=== PATIENT | female | born 1930 | race Caucasian/White ===

== ENCOUNTER → 2016-09-17 | Outpatient (CLI) | payer MEDICARE, OTHER ==
--- NOTE | 2016-09-17 15:41 | MAM ---
EXAM DESCRIPTION: MAMMO BREAST SCREENING BILATERAL CAD, images were reviewed with CAD technology, R2 computer-aided detection. CLINICAL HISTORY: [facility]. COMPARISON: 2011. FINDINGS: Routine views are obtained. Scattered glandular pattern. No dominant mass, architectural distortion or clustered microcalcification.. IMPRESSION: Benign exam. BIRAD CATEGORY: 2 BENIGN RECOMMENDATIONS: FOLLOW-UP: Routine screening mammogram in one year. According to the [employer], yearly mammograms are recommended starting at age 40 and continuing as long as a woman is in good health. Any breast change noted on a breast self-exam should be reported promptly to the patient's healthcare provider. Breast MRI is recommended for women with an approximately 20-25% or greater lifetime risk of breast cancer, including women with a strong family history of breast or ovarian cancer and women who have been treated for Hodgkin's disease. Electronically signed by: Nurys Hernandez 09/17/2016 15:39
== END ==
LOC: MAMMO 10:01
PROVIDERS: ATTEND Obstetrics & Gynecology
DX: Z12.31 Encounter for screening mammogram for malignant neoplasm of breast (principal)
CPT/HCPCS: 77052; G0202

== ENCOUNTER → 2017-06-18 | Outpatient (CLI) | payer MEDICARE, OTHER | END | disposition home or self-care (01) | LOC: GMAH 12:02 | PROVIDERS: ATTEND Family Medicine | DX: I10 Essential (primary) hypertension (principal) ==

== ENCOUNTER → 2017-09-24 | Outpatient (CLI) | payer MEDICARE, OTHER ==
--- NOTE | 2017-09-30 08:10 | MAM ---
EXAM DESCRIPTION: 3D Screening BILATERAL : Digital Mammography. CLINICAL HISTORY: 87 years Female SCREENING . No complaints. No family history of breast cancer. Postmenopausal. No HRT. COMPARISON: 2-D digital screening bilateral studies on 09/17/2016 and 09/12/2015. Report from prior examination also reviewed. TECHNIQUE: Bilateral CC and MLO projection full-field images, 3-D tomosynthesis digital mammographic technique. Also bilateral synthesized CC/ MLO full-field images. CAD not utilized. FINDINGS: The breast parenchymal density pattern is: Scattered areas of fibroglandular density. No skin thickening or nipple retraction bilateral axillary lymph nodes. Bilateral vascular calcifications. Bilateral solitary microcalcifications. No focal, stellate mass or density, focal asymmetry , and no suspicious microcalcifications bilaterally. Stable mammograms compared to prior study, taking into account differences in mammographic technique IMPRESSION: BI-RADS CATEGORY: 2 - BENIGN FINDINGS. FOLLOW UP: Routine digital bilateral screening, one year interval from September 2017. Written communication explaining the IMPRESSION and follow-up, will be mailed to the patient and referring health care provider. According to the [employer], yearly mammograms are recommended starting at age 40 and continuing as long as a woman is in good health. Any breast change noted on a breast self-exam should be reported promptly to the patient's healthcare provider. Breast MRI is recommended for women with an approximately 20-25% or greater lifetime risk of breast cancer, including women with a strong family history of breast or ovarian cancer and women who have been treated for Hodgkin's disease. A negative mammographic report should not delay tissue diagnosis in patients with significant clinical history or physical findings. Extremely dense breast tissue limits the sensitivity of digital mammography. Electronically signed by: Derrell Strong MD 09/30/2017 8:09 AM [facility]
== END ==
LOC: MAMMO 09:30
PROVIDERS: ATTEND Family Medicine
DX: Z12.31 Encounter for screening mammogram for malignant neoplasm of breast (principal)

== ENCOUNTER → 2018-01-22 | Outpatient (CLI) | payer OTHER ==
--- NOTE | 2018-01-28 11:41 | CT ---
EXAM DESCRIPTION: Head CLINICAL HISTORY: MIGRAINE W/AURA COMPARISON: None Available TECHNIQUE: Contiguous axial CT images of the head were obtained. Coronal and sagittal reconstructions were created from the axial data. This exam was performed according to our departmental dose-optimization program, which includes automated exposure control, adjustment of the mA and/or kV according to patient size and/or use of iterative reconstruction technique. FINDINGS: Poorly defined foci of decreased attenuation do not exert significant mass effect on surrounding structures and are likely sequela of prior insult, most likely on the basis of small vessel disease. There is no definite evidence of acute mass, mass effect, midline shift or hemorrhage. The ventricles and extra-axial CSF spaces are unremarkable. The brain parenchyma appears otherwise normal for the patient's age. No acute abnormalities of the bones is seen. IMPRESSION: No acute intracranial abnormality. Electronically signed by: Derrell Ovalle 01/22/2018 5:52 PM CDT
== END ==
LOC: CT 11:45
PROVIDERS: ATTEND Family Medicine
DX: G43.109 Migraine with aura, not intractable, without status migrainosus (principal)

== ENCOUNTER 2018-02-22 14:28 | Emergency (ER) | payer MEDICARE, OTHER ==
[2018-02-22 14:41] VITALS: TEMP 98.3
--- NOTE | 2018-02-22 15:12 | RAD ---
EXAM DESCRIPTION: Hip,Left 2 Views CLINICAL HISTORY: hip pain COMPARISON: None. TECHNIQUE: 2 views left FINDINGS: I see no bone joint or soft tissue abnormality. IMPRESSION: Normal left hip. Electronically signed by: Arturo Vitale MD 02/22/2018 3:10 PM CDT
--- NOTE | 2018-02-22 16:48 | CT ---
EXAM DESCRIPTION: Lower Extremity CLINICAL HISTORY: 87 years Female left femur pain COMPARISON: None. TECHNIQUE: Contiguous axial CT images obtained through the without IV contrast. Reformatted images obtained. This exam was performed according to our department optimization program which includes automated exposure control, adjustment of the mA and/or kv according to patient size and/or use of iterative reconstruction technique. All CT scanners at this facility use dose modulation, iterative reconstruction, and/or weight based dosing when appropriate to reduce radiation dose to as low as reasonably achievable (ALARA). FINDINGS: No fracture or dislocation is seen. No intrinsic abnormality of the bone. No definite soft tissue abnormality. IMPRESSION: No significant abnormality identified. Electronically signed by: Derrell Ovalle 02/22/2018 4:47 PM CDT
--- NOTE | 2018-02-22 17:04 | ED.PDOC ---
History of Present Illness - General Chief Complaint: Lower Extremity Injury Stated Complaint: left thigh injury Time Seen by Provider: 02/22/18 14:38 Source: patient, Vital Signs reviewed Exam Limitations: no limitations - History of Present Illness Initial Comments: fell onto her left side now with left medial thigh [place] slightly distal to the inguinal fold Occurred: other - today Pain - Lower Extremity: mild: Left Thigh/Hip Method of Injury: fell Improving Factors: rest Worsening Factors: movement Allergies/Adverse Reactions: Allergies Penicillins Allergy (Verified 02/22/18 14:35) Hives Review of Systems - Review of Systems Constitutional: States: no symptoms reported Respiratory: States: no symptoms reported Cardiology: States: no symptoms reported Gastrointestinal/Abdominal: States: no symptoms reported Genitourinary: States: no symptoms reported Musculoskeletal: States: see HPI. Denies: back pain Skin: States: no symptoms reported Neurological: Denies: headache, paresthesia, weakness Past Medical History (General) - Patient Medical History Hx Stroke: No Hx Congestive Heart Failure: No Hx Hypertension: Yes Hx Diabetes: No Hx Gastroesophageal Reflux: Yes Hx Cancer: Yes - Melanoma - Vaccination History Hx Influenza Vaccination: Yes - 2016 Hx Pneumococcal Vaccination: Yes - 2014 - Social History Hx Tobacco Use: No Family Medical History - Family History Mother Family History: No Known Living Status: Cause of : Old age Physical Exam - Physical Exam General Appearance: Alert, Comfortable, No apparent distress Neck: full range of motion, supple, normal inspection Cardiovascular/Respiratory: no respiratory distress Gastrointestinal/Abdominal: non-tender Back: normal inspection Thigh/Hip: normal inspection, no evidence of injury, pain, soft tissue tenderness Leg: normal inspection Knee: normal inspection Neuro/Tendon: normal motor functions, responds to pain Mental Status: alert, oriented x 3 Skin: normal color Progress - Progress Progress: 02/22/18 17:02 improved. Able to beaar weight. Walks with a limp. Declines pain meds or wheelchair. Limited weight bearing this weekend. F/U with PCP on Saturday. - EKG/XRAY/CT XRAY: hip - normal CT Ordered: Yes CT Interpretation Call Back: No - normal Departure - Departure Clinical Impression: Contusion of hip and thigh Qualifiers: Encounter type: initial encounter Laterality: left Qualified Code(s): S70.02XA - Contusion of left hip, initial encounter Disposition: Discharge to Home or Self Care Condition: Fair Departure Forms: ED Discharge - Pt. Copy, Patient Portal Self Enrollment Instructions: Hip Pain, Hip Pain (DC) Referrals: Abdias Duarte MD [Primary Care Provider] - 1-2 Days
[2018-02-22 17:18] VITALS: BP 177/73; O2SAT 96
== END 2018-02-22 17:20 | disposition home or self-care (01) ==
LOC: ER 14:28
DX: S70.12XA Contusion of left thigh, initial encounter (principal); I10 Essential (primary) hypertension; K21.9 Gastro-esophageal reflux disease without esophagitis; Z85.820 Personal history of malignant melanoma of skin; Z88.0 Allergy status to penicillin; W01.198A Fall on same level from slipping, tripping and stumbling with subsequent striking against other object, initial encounter; Y92.000 Kitchen of unspecified non-institutional (private) residence as the place of occurrence of the external cause

== ENCOUNTER → 2018-03-06 | Outpatient (CLI) | payer OTHER ==
--- NOTE | 2018-03-06 16:38 | MRI ---
Study: MRI of the Left Hip. Indication: PAIN IN LEFT HIP Technique: Multiplanar, multi sequence MRI of the left hip was obtained without intravenous contrast. Comparison: Radiographs and CT February 22, 2018. Findings: Acute impacted subcapital left femoral neck fracture noted with surrounding marrow edema and pericapsular edema. No osteonecrosis. At least mild left hip osteoarthritis. Fairly prominent marrow edema and likely subchondral cystic change noted of the superior medial aspects of the right hip joint affecting both the femoral head and acetabulum. Pronounced lower lumbar disc disease. 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 Moderate pubic symphysis osteoarthritis. No high-grade pelvic tendon tear. Bladder distended. Impression: Acute impacted left subcapital femoral neck fracture. Orthopedic consultation is advised. Findings on this exam were called to Dr. MARIE VEGA at 03/06/2018 4:36 PM CDT. Electronically signed by: Rasta Lin MD 03/06/2018 4:36 PM CDT
== END ==
LOC: MRI 11:23
PROVIDERS: ATTEND Family Medicine
DX: S72.002A Fracture of unspecified part of neck of left femur, initial encounter for closed fracture (principal)

== ENCOUNTER 2018-03-07 06:54 | Inpatient (IN) | payer OTHER ==
[2018-03-07] MEDS ORDERED: TRANEXAMIC ACID 1,000 MG/10 ML VIAL ONE ×2 (08:47→08:48)
[2018-03-07] MEDS ORDERED: SODIUM CHLORIDE 0.9% 100ML 100 ML IVPB ONE (08:47)
[2018-03-07] MEDS ORDERED: SODIUM CHLORIDE 0.9% 1000ML 1,000 ML ONE (08:47)
[2018-03-07] MEDS ORDERED: SODIUM CHL 0.9% 100ML MINI-BAG 100 ML IVPB ONE (08:48)
[2018-03-07] MEDS ORDERED: SODIUM CHLORIDE 0.9% 250ML 250 ML ONE ×2 (08:49→21:04)
[2018-03-07] MEDS ORDERED: ceFAZolin SODIUM 1 GM VIAL ONE ×3 (08:49→08:56)
[2018-03-07] MEDS ORDERED: VANCOMYCIN HCL INJ 1,000 MG VIAL IVPB ONE ×2 (08:49→21:05)
[2018-03-07] MEDS ORDERED: MORPHINE SULFATE INJ 10 MG/ML VIAL ONE (08:59)
[2018-03-07] MEDS ORDERED: DEXAMETHASONE INJ 10 MG/ML VIAL ONE (09:00)
[2018-03-07] MEDS ORDERED: METOCLOPRAMIDE HCL INJ 10 MG/2 ML VIAL ONE (09:00)
[2018-03-07] MEDS ORDERED: raNITIdine HCL INJ 25 MG/ML VIAL ONE (09:00)
[2018-03-07] MEDS ORDERED: PHENYLEPHRINE INJ 1ML 10 MG/ML VIAL ONE (09:00)
[2018-03-07] MEDS ORDERED: ePHEDrine SULF 50 MG/ML ONE (09:00)
[2018-03-07] MEDS ORDERED: SODIUM CHLORIDE 0.9% 50 ML VIAL ONE (09:00)
[2018-03-07] MEDS ORDERED: LIDOCAINE 1% 2 ML VIAL INJ ONE (09:00)
[2018-03-07] MEDS ORDERED: PROPOFOL 200 MG/20 ML VIAL IV ONE (09:00)
[2018-03-07] MEDS ORDERED: MORPHINE SULF *EPIDURAL* 1 MG/ML VIAL ONE (09:42)
[2018-03-07] MEDS ORDERED: fentaNYL CITRATE INJ 50 MCG/ML AMP ONE (09:42)
[2018-03-07] MEDS ORDERED: MIDAZOLAM INJ 2 MG/2 ML VIAL ONE (09:42)
[2018-03-07] MEDS ORDERED: ROCURONIUM BROMIDE 10 MG/ML VIAL ONE (09:43)
[2018-03-07] MEDS ORDERED: ACETAMINOPHEN IV 1000MG 100 ML ONE (09:53)
--- NOTE | 2018-03-07 10:09 | RAD ---
EXAM DESCRIPTION: Chest,2 Views CLINICAL HISTORY: pre op COMPARISON: None TECHNIQUE: PA/lateral FINDINGS: There is no acute appearing cardiac or pulmonary abnormality. Heart size is normal with normal pulmonary vascularity. No pleural effusion or pneumothorax. Lungs are clear with no consolidating infiltrate. Lateral view shows intact sternum and T-spine. IMPRESSION: No acute process is identified in the chest. Electronically signed by: Quinten Garnett MD 03/07/2018 10:08 AM CDT
[2018-03-07] MEDS: VANCOMYCIN HCL INJ 1,000 MG VIAL IVPB ONE ×2 (11:04→11:58)
[2018-03-07] MEDS: ceFAZolin SODIUM 1 GM VIAL ONE ×2 (11:04→11:58)
[2018-03-07] MEDS: BUPIVACAINE 0.25% W/EPI 50 ML VIAL INJ ONE ×2 (11:05→12:33)
[2018-03-07] MEDS ORDERED: ELECTROLYTE-A 1,000 ML IVS ONE ×2 (11:27→12:44)
[2018-03-07] MEDS ORDERED: SUGAMMADEX SODIUM 200 MG/2 ML VIAL IV ONE (12:29)
[2018-03-07] MEDS ORDERED: MORPHINE PCA 1 MG/ML 100 ML BAG IVPB ONE (13:23)
--- NOTE | 2018-03-07 14:35 | HP ---
CHIEF COMPLAINT: Left hip pain. HISTORY OF PRESENT ILLNESS: Ms. Rick is an 87-year-old female with a history of a fall about 3 weeks ago. She had the acute onset of pain at that time. She was taken to the Emergency Room initially and there was no abnormality identified. She subsequently underwent evaluation with a CT scan which was also negative. She presented to Dr. Duarte's office and Dr. Duarte performed an MRI which did show a subcapital femoral neck fracture. At that point, it had become displaced. Because of those findings and the displaced nature of it, she and I discussed the risks, benefits and alternatives to operative therapy. After doing so, she gave informed consent for hemiarthroplasty. PAST MEDICAL HISTORY: 1. Hiatal hernia with gastroesophageal reflux disease. 2. Hypertension. 3. Hyperlipidemia. PAST SURGICAL HISTORY: 1. Cholecystectomy. 2. Bladder suspension. 3. Hysterectomy. 4. Laminectomy. 5. Cataract removal. MEDICATIONS: 1. Valsartan. 2. Trospium. 3. Tramadol. FAMILY HISTORY: None pertinent to today's complaint. SOCIAL HISTORY: The patient does not drink, smoke or use any illicit drugs. REVIEW OF SYSTEMS: Negative except as indicated in the History of Present Illness. PHYSICAL EXAMINATION: VITAL SIGNS: Blood pressure 110/72. Respirations 18. O2 saturation 99%. Temperature 97.2. Pulse 85. MENTAL STATUS: The patient is awake, alert, and is able to give a good history and participate in the physical. The patient is oriented to person, place and time. SKIN: Normal tone and turgor. HEENT: Normocephalic, atraumatic. Pupils equal, round and reactive. Mucosal membranes are moist. NECK: Normal range of motion. No thyromegaly, no lymphadenopathy. CHEST: Normal respiratory excursion. CARDIAC: Regular rate and rhythm. No murmurs, rubs or gallops. MUSCULOSKELETAL: The bilateral upper extremities show full active range of motion without pain. She has intact sensation throughout and they are warm and well perfused. There is no deformity and no crepitus with range of motion. The right lower extremity shows no significant pain with range of motion of the hip. There is no deformity. Plantar flexion and dorsiflexion of the distal extremity shows 5/5 strength. The left lower extremity is very tender to any attempted range of motion of the hip. She has no deformity. Sensation is intact. It is warm and well perfused. ASSESSMENT: 1. Subcapital femoral neck fracture. PLAN: The plan at this point is for hemiarthroplasty. I do believe that is the quickest way to get her up and mobilized. We have discussed the risks, benefits , and alternatives to that and the patient has given informed consent. [facility][id number] [facility]
[2018-03-07] MEDS ORDERED: PROMETHAZINE HCL INJ 25 MG in SODIUM CHLORIDE 0.9% 50ML 50 ML IVPB PRN (15:34)
[2018-03-07] MEDS ORDERED: MORPHINE SULFATE INJ 10 MG/ML VIAL IM PRN (15:34)
[2018-03-07] MEDS ORDERED: NALOXONE HCL INJ 0.4 MG/ML VIAL IV PRN (15:34)
[2018-03-07] MEDS ORDERED: ACETAMINOPHEN 500 MG TAB PO PRN (15:34)
[2018-03-07] MEDS ORDERED: DEX 5% W/NACL 0.45% 1000ML 1,000 ML IVS PRN (15:34)
[2018-03-07] MEDS ORDERED: SODIUM CHLORIDE 0.9% (FLUSH) 10 ML SYG IV PRN (15:34)
[2018-03-07] MEDS ORDERED: ONDANSETRON INJ 4 MG/2 ML VIAL IV PRN (15:34)
[2018-03-07] MEDS ORDERED: PROMETHAZINE HCL INJ 12.5 MG in SODIUM CHLORIDE 0.9% 50ML 50 ML IVPB PRN (15:34)
[2018-03-07] MEDS ORDERED: traMADol HCL 50 MG TAB PO PRN (15:34)
[2018-03-07] MEDS ORDERED: MORPHINE SULFATE INJ 10 MG/ML VIAL IV PRN (15:34)
[2018-03-07] MEDS ORDERED: MORPHINE PCA 1 MG/ML 100 ML BAG IVPB SCH (16:00)
[2018-03-07] MEDS: IV SET AND CAP CHANGE INJ INJ SCH (16:08)
[2018-03-07] MEDS ORDERED: ceFAZolin SODIUM 2 GRAMS PREMI 50 ML IVPB ONE (18:10)
[2018-03-07] MEDS: ceFAZolin SODIUM 2 GRAMS PREMI 2 GM in PREMIX BAG 1 BAG IVPB SCH (18:15)
[2018-03-07] MEDS: CELECOXIB 100 MG CAP PO SCH (18:15)
--- NOTE | 2018-03-07 19:43 | RAD ---
EXAM DESCRIPTION: Pelvis CLINICAL HISTORY: postop COMPARISON: None Available. TECHNIQUE: AP left hip neutral and abduction FINDINGS: Left total hip arthroplasty. Customary position and near-anatomic alignment. The bone density measurement abutting the components is unremarkable. Typical postsurgical soft tissue changes. No abnormal radiodense objects in the soft tissues or joint spaces. IMPRESSION: Status post left total hip arthroplasty. Customary position and near-anatomic alignment. No bony or hardware complications. Electronically signed by: Derrell Strong MD 03/07/2018 7:42 PM CDT
--- NOTE | 2018-03-07 19:45 | RAD ---
EXAM DESCRIPTION: Hip,Left 2 Views CLINICAL HISTORY: 87 years Female, postop COMPARISON: Pelvis and hip radiographs on the same visit. Impression: Left total hip arthroplasty. Components in customary position with near-anatomic alignment. Appearance of the bone and cement abutting the components is unremarkable. Typical postsurgical soft tissue changes. No abnormal radiodense objects in the soft tissues or hip joint space. Electronically signed by: Derrell Strong MD 03/07/2018 7:43 PM CDT
[2018-03-07] MEDS: DOCUSATE CALCIUM 240 MG CAP PO SCH (21:43)
[2018-03-07] MEDS: VANCOMYCIN HCL INJ 1,000 MG in SODIUM CHLORIDE 0.9% 250ML 250 ML IVPB SCH (21:43)
--- NOTE | 2018-03-07 22:04 | PCM.CORE ---
Physician DVT/VTE - Nurse DVT Assessment & Total Each Risk Factor Represents 5 Points: Hip,Pelvis,leg Fx <1month Each Risk Factor Represents 3 Points: Age over 75 years Each Risk Factor Represents 1 Point: Medical PT at Bed Rest Each Risk Factor is 1 Point: Obesity (BMI >25) DVT Assessment Score: 10 - 5 or more Very High Risk Treatments: Early Ambulation *, Sequential Compression Device Pharmacological: Enoxaparin 30mg SQ BID
[2018-03-08] MEDS ORDERED: ceFAZolin SODIUM 2 GRAMS PREMI 50 ML IVPB ONE ×2 (02:38→12:33)
[2018-03-08] MEDS: ceFAZolin SODIUM 2 GRAMS PREMI 2 GM in PREMIX BAG 1 BAG IVPB SCH ×2 (02:41→11:00)
[2018-03-08] MEDS: ENOXAPARIN SODIUM 30 MG/0.3 ML SYG SUBCU SCH ×2 (02:42→14:12)
[2018-03-08] MEDS: CELECOXIB 100 MG CAP PO SCH ×2 (07:00→18:47)
--- NOTE | 2018-03-08 09:14 | CONS ---
SUPERVISING PHYSICIAN: Richmond Valencia MD REASON FOR CONSULTATION: Postoperative left hemiarthroplasty for acute left hip fracture. HISTORY OF PRESENT ILLNESS: Ms. Rick is an 87 year-old female patient. Her primary care physician is Dr. Duarte. The patient notes that she had gone to the Emergency Room on 02/22/18 with complaint of left hip pain and leg pain. 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 Initially, workup in the Emergency Department included x-rays of her hip that initially showed a normal left. This was then followed up with a lower extremity CT that showed no significant abnormalities identified. The patient was discharged home to have close clinical followup with Dr. Duarte. She was seen in followup on 02/25 and at that time treated with pain management. Three does post followup, the patient was continuing to have a significant amount of pain in her hip despite palliative measure treatments with heat and Tramadol, the patient was getting no relief. Dr. Duarte reviewed the CT and x-rays that were performed in the Emergency Department with radiologist, Dr. Strong, who recommended an MRI of the hip. MRI of the hip was completed on 03/06/18 and it was noted that she had acute impacted subcapital femoral neck fracture. Dr. Duarte consulted with Dr. Ansari who recommended the patient be admitted on the power plant electrician of 02/17 for a left hemiarthroplasty to repair the broken hip. The patient was admitted on 03/07 and had procedure completed which included a hemiarthroplasty of the left hip. The patient had no complications intraoperatively and is now seen in the postoperative state. She is in stable condition and appears to be comfortable and in no pain. We will follow the patient as she progresses through her postoperative phase. PAST MEDICAL HISTORY: 1. History of gastritis and hiatal hernia with gastroesophageal reflux disease. 2. History of hypertension. 3. History of hyperlipidemia. 4. Seasonal allergies. PAST SURGICAL HISTORY: 1. Cholecystectomy. 2. Bladder suspension. 3. Hysterectomy. 4. Back surgery, laminectomy. 5. Cataract with corneal implant. CURRENT MEDICATIONS: 1. Valsartan 160 mg daily. 2. Trospium chloride extended release 60 mg daily. 3. Tramadol 50 mg daily. 4. Prednisone drops, Omnipred 1% both eyes daily. FAMILY HISTORY: Significant for colon cancer in her father. Mother from pancreatic cancer. No mention of any significant heart disease or diabetes. SOCIAL HISTORY: The patient is retired. She is and currently lives in [place]. She has a history of previous cigarette smoking but stopped well over 25 years ago. No illicit drug or alcohol use. REVIEW OF SYSTEMS: CONSTITUTIONAL: Denies any fevers, chills, weight loss. HEENT: Denies earache, headache, sore throat, nasal congestion. CHEST: Denies coughing, wheezing, exertional dyspnea. HEART: Denies chest pain, edema, palpitations, syncopal episodes. GASTROINTESTINAL: Denies nausea, vomiting, diarrhea, constipation or abdomen pain. EXTREMITIES: As noted in the history of present illness. NEUROLOGICAL: Denies syncopal episodes, seizure activity, ataxia or other neurological deficits. PHYSICAL EXAMINATION: VITAL SIGNS: Temperature 96.3, pulse 94, blood pressure 113/68, respirations 18 , saturation 99% on nasal cannula at 2 liters at rest. Admission weight 66.4 kg. GENERAL: The patient is in postoperative state, she appears to be in no acute distress and resting comfortably. She is alert. HEENT: Temperatures clear bilaterally. Oropharynx is pink and moist without any lesions. NECK: Supple, non-tender with full range of motion. No jugular venous distention. CHEST: Clear to auscultation bilaterally without rhonchi, rales, or wheezes. HEART: Regular rate and rhythm without appreciable murmurs, rubs, or gallops. ABDOMEN: Soft, non-tender, positive bowel sounds. EXTREMITIES: No cyanosis, clubbing, or edema. Overlying the left hip is a surgical dressing that is clean and dry. There are no signs of infection or bleeding. Distally, pulses were strong, capillary refill brisk. NEUROLOGIC: She is alert and oriented x 3. LABORATORY: Preoperative CBC shows a white count of 6,200, hemoglobin 12.9, hematocrit 37.1 with platelet count 243,000. Differential shows to be without a left shift. Chemistries shows just a mild hyponatremia at 131, potassium 3.7 , BUN 18, creatinine 0.82, calcium 9.8. Urinalysis showed a small leukoesterase on dip stick. Microscopic shows 0 RBC, 5 to 10 WBC, 0 epithelials , 1+ bacteria. MICROBIOLOGY: Urine culture pending. RADIOLOGY: Chest x-ray preoperative shows no acute process identified in the chest per radiology interpretation. Postoperative imaging included hip and pelvis and per radiology interpretation showed a left total hip arthroplasty. Components in customary position with normal anatomic alignment, typical postsurgical changes. ASSESSMENT: 1. Acute impacted left subcapital femoral neck fracture status post same level fall, postoperative day #0 for a left hemiarthroplasty performed by Dr. Conner Ansari. 2. Seasonal allergies. 3. Hypertension. 4. Gastroesophageal reflux disease. 5. Urinary tract infection preoperative prior to placement of Bhakta catheter with patient being asymptomatic with cultures pending. PLAN: Will follow the patient as she continues through her postoperative phase with physical therapy. Will resume her home medications once they have been updated and verified. She in on deep venous thrombosis prophylaxes per protocol. In regards to urinary tract infection, she will be on Ancef post op and then after that is finished postoperatively, we will start her on Rocephin and await culture results to better target antibiotic therapy. Will anticipate length of stay to be at least 2 or 3 days with discharge planning in place. Until discharge, we will continue to monitor and treat appropriately. #[id number] [facility]
[2018-03-08] MEDS ORDERED: SODIUM CHLORIDE 0.9% 250ML 250 ML ONE (09:17)
[2018-03-08] MEDS ORDERED: VANCOMYCIN HCL INJ 1,000 MG VIAL IVPB ONE (09:18)
[2018-03-08] MEDS: VALSARTAN 80 MG TAB PO SCH (09:24)
[2018-03-08] MEDS: MAGNESIUM OXIDE 400 MG TAB PO SCH (09:24)
[2018-03-08] MEDS: prednisoLONE ACETATE 1% OPHTH SOL 5 ML BTTL OPHTH SCH (09:25)
[2018-03-08] MEDS: VANCOMYCIN HCL INJ 1,000 MG in SODIUM CHLORIDE 0.9% 250ML 250 ML IVPB SCH (09:29)
[2018-03-08] MEDS ORDERED: OMEPRAZOLE CAP 20 MG CAP PO ONE (13:48)
[2018-03-08] MEDS ORDERED: OMEPRAZOLE CAP 20 MG CAP ONE ×2 (14:11→19:36)
--- NOTE | 2018-03-08 15:10 | PN ---
DATE: 03/08/18 SUBJECTIVE: Ms. Rick subjectively is doing really well. She is up out of bed and has been ambulating. OBJECTIVE: She is afebrile. Vital signs are stable. Dressing is clean, dry and intact. ASSESSMENT: 1. Status post hemiarthroplasty. PLAN: She is going to continue her weightbearing as tolerated status. [facility][id number] [facility]
--- NOTE | 2018-03-08 18:50 | OP ---
DATE OF PROCEDURE: 03/08/18 PREOPERATIVE DIAGNOSIS: 1. Femoral neck fracture. POSTOPERATIVE DIAGNOSIS: 1. Femoral neck fracture. PROCEDURE: 1. Hemiarthroplasty. SURGEON: Conner Ansari M.D. PHLEBOTOMY SUPPORT TECH: Derrell Bess CST, -Claus ANESTHESIA: General anesthesia. COMPLICATIONS: None. FINDINGS: Transcervical femoral neck fracture with displacement. INDICATION FOR PROCEDURE: Ms. Rick fell about 3 weeks ago. She had the acute onset of pain at that time. Ms. Rick unfortunately had evaluation but no fracture was identified at the time of the evaluation. Subsequent studies included a CT scan but finally an MRI did show a displaced fracture of the femoral neck. Because of the fracture, we talked about the risks, benefits, and alternatives to operative therapy. She gave informed consent for operative therapy to include hemiarthroplasty. PROCEDURE: The patient was brought to the Operating Room and placed in supine position. Anesthesia was induced and the patient was transitioned into the lateral decubitus position. The leg and hemipelvis were sterilely prepped and draped and an incision was made centered on the greater trochanter with extension both proximally and distally. Dissection was carried down to the iliotibial band which was sharply incised along the course of its fibers. A Charnley retractor was placed and the abductor musculature was identified. The anterior one-third of the abductor musculature was elevated off the greater trochanter using electrocautery and the capsule was incised. The femoral head was removed and the primary femoral neck cut was made. The acetabulum was examined and found to be free of any significant defect, therefore attention was focused on the femur. The femoral canal was sequentially broached until an appropriate sized trial prosthesis was placed. A trial femoral head was placed and the hip was reduced. The hip was taken through a full range of motion and demonstrated stability without impingement or pending dislocation and the leg length appeared to be paresthesias. Following trialing, the trial component was removed and the femoral canal was prepared for cementation of the prosthesis. A distal cement restrictor was placed and the final component was cemented into place. The excess cement was removed and the remaining cement was allowed to cure. The final head was impacted and the hip was reduced, taken through a full range of motion, and found to be stable without impingement. The wound was thoroughly irrigated and the abductor musculature was reapproximated to the greater trochanter through drill holes using Ethibond. The repair was augmented with PDS suture and the iliotibial band was subsequently closed. The subcutaneous tissues were closed with a combination of running and interrupted subcuticular stitches, a sterile dressing was placed , and the patient was transitioned into the supine position. The patient was awoken from anesthesia and taken to the Recovery Room in stable condition. COMPONENTS: [place] cemented stem size 6 with a 45 mm head. POSTOPERATIVE INSTRUCTIONS: She will be weightbearing as tolerated on postoperative day 1. #[id number] [facility]
[2018-03-08] MEDS ORDERED: SODIUM CHL 0.9% 50ML MIN-BAG+ 50 ML IVPB ONE (19:36)
[2018-03-08] MEDS ORDERED: cefTRIAXone SODIUM 1 GM VIAL ONE (19:37)
[2018-03-08] MEDS ORDERED: TROSPIUM CHLORIDE 60 MG PO SCH (20:00)
--- NOTE | 2018-03-08 20:02 | PN ---
DATE: 03/08/18 SUPERVISING PHYSICIAN: Richmond Valencia M.D. SUBJECTIVE: The patient is resting well. She has had good pain control. She has had no complaints postoperatively other than just urinary urgency after her catheter was removed. She does have a history of urinary urgency. Will resume her home medications for that today as well as she has a mild urinary tract infection and will continue antibiotics to cover this. She remains afebrile. OBJECTIVE: VITAL SIGNS: Afebrile, temperature 98.4, pulse 82, blood pressure 119/81, respiratory effort 14, O2 saturations 98% on room air. I's and O's show a positive balance of 180 with 1280 in, 1100 out. Weight is 66.4 kg. CHEST: Clear to auscultation. HEART: Regular rate and rhythm. ABDOMEN: Soft, non-tender. Positive bowel sounds. EXTREMITIES: No clubbing, cyanosis or edema. Left hip has an island dressing in place which is clean and dry. There are no signs of infection. Distally pulses are strong and equal. Capillary refill is brisk. NEUROLOGIC: She is alert and oriented times three. LABORATORY: Postoperative H&H is 10.1 and 29.4 respectively. MICROBIOLOGY: Urine culture is pending. ASSESSMENT: 1. Acute impacted left subcapital femoral neck fracture status post same level fall, postoperative day #1 for a left hemiarthroplasty performed by Dr. Conner Ansari orthopedic surgeon. 2. Urinary tract infection preoperatively prior to Bhakta placement with continuation of antibiotics and urine cultures pending. 3. Seasonal allergies. 4. Hypertension. 5. Gastroesophageal reflux disease. PLAN: Will continue to follow the patient closely. She is doing well with pain control. Will resume her home medications and make sure that she is getting her bladder medication. Will continue with Rocephin for antibiotic coverage once her postoperative antibiotics are finished today. Will await urinary culture to further target antibiotic therapy. Will continue to follow the patient with Physical therapy as she progresses through her postoperative rehabilitation efforts. Until she has met her physical therapy goals and is clinically able to be discharged, will continue to monitor and treat appropriately. #[id number] [facility]
[2018-03-08] MEDS: DOCUSATE CALCIUM 240 MG CAP PO SCH (20:26)
[2018-03-08] MEDS: cefTRIAXone SODIUM 1 GM in SODIUM CHL 0.9% 50ML MIN-BAG+ 50 ML IVPB SCH (20:28)
[2018-03-09] MEDS: ENOXAPARIN SODIUM 30 MG/0.3 ML SYG SUBCU SCH ×2 (02:26→14:30)
[2018-03-09] MEDS: OMEPRAZOLE CAP 20 MG CAP PO SCH (06:11)
[2018-03-09] MEDS: CELECOXIB 100 MG CAP PO SCH ×2 (07:53→16:45)
[2018-03-09] MEDS: HYDROcodone 5MG/APAP 325MG 1 EA TAB PO PRN ×2 (08:48→20:32)
[2018-03-09] MEDS: TROSPIUM CHLORIDE 60 MG PO SCH (08:48)
[2018-03-09] MEDS: MAGNESIUM OXIDE 400 MG TAB PO SCH (08:49)
[2018-03-09] MEDS: VALSARTAN 80 MG TAB PO SCH (08:54)
[2018-03-09] MEDS ORDERED: TROSPIUM CHLORIDE 60 MG PO SCH (09:00)
[2018-03-09] MEDS: prednisoLONE ACETATE 1% OPHTH SOL 5 ML BTTL OPHTH SCH (09:08)
[2018-03-09] MEDS: PHENAZOPYRIDINE HCL 200 MG TAB PO SCH ×2 (15:25→20:31)
--- NOTE | 2018-03-09 19:30 | PN ---
DATE: 03/09/18 SUPERVISING PHYSICIAN: Richmond Valencia M.D. SUBJECTIVE: The patient continues to do well. She has had good pain control. She has been doing great with her physical therapy. She still has little issues with bladder spasms but this is improving since her medication for her overactive bladder is being continued. We continue to await cultures and will leave her on antibiotics until those are available to further rule out that she does not have a urinary tract infection prior to admission. I also talked to her that we would add some Pyridium in efforts to calm down her bladder as well. She remains afebrile. We discussed discharge planning and her wishes are to be to go to Swing Bed or be able to go home. OBJECTIVE: VITAL SIGNS: Temperature 97.9, pulse 80, blood pressure 155/82, respirations 18, satting 95% on room air. I's and O's show a negative balance of 150 with 500 in, 650 out. She has not yet had a bowel movement. She is passing some gas. Weight is 66.4 kg. CHEST: Clear to auscultation. HEART: Regular rate and rhythm. ABDOMEN: Soft, non-tender. Positive bowel sounds. EXTREMITIES: Left hip has a dressing in place that is clean and dry. There are no signs of infection or edema. Minimal swelling and distally pulses are strong. Capillary refill is brisk. NEUROLOGIC: She is alert and oriented times three. LABORATORY: No additional laboratory for review. ASSESSMENT: PLAN: Will continue to follow the patient as she progresses through her physical therapy efforts. I did restart her bladder medicine and will start her on some Pyridium as well as monitor her urine cultures, and until those are available continue with Rocephin for coverage of possible urinary tract infection that was present prior to catheterization on admission. I did discuss with her possibly going to [facility] versus Swing Bed and she is adamant that she stay here in Swing Bed or if possible go home. I believe Dr. Ansari feels like she could probably go home, but again will readdress this in the morning. Until then, continue to monitor and treat appropriately. #[id number] [facility]
[2018-03-09] MEDS ORDERED: SODIUM CHL 0.9% 50ML MIN-BAG+ 50 ML IVPB ONE (20:07)
[2018-03-09] MEDS ORDERED: cefTRIAXone SODIUM 1 GM VIAL ONE (20:08)
[2018-03-09] MEDS: DOCUSATE CALCIUM 240 MG CAP PO SCH (20:31)
[2018-03-09] MEDS: cefTRIAXone SODIUM 1 GM in SODIUM CHL 0.9% 50ML MIN-BAG+ 50 ML IVPB SCH (20:32)
[2018-03-10] MEDS: ENOXAPARIN SODIUM 30 MG/0.3 ML SYG SUBCU SCH ×2 (02:57→13:03)
[2018-03-10] MEDS: OMEPRAZOLE CAP 20 MG CAP PO SCH (06:52)
[2018-03-10] MEDS: HYDROcodone 5MG/APAP 325MG 1 EA TAB PO PRN ×2 (06:55→13:03)
--- NOTE | 2018-03-10 08:25 | PN ---
DATE: 03/09/18 SUBJECTIVE: Ms. Rick is doing really well and not having any pain. OBJECTIVE: Afebrile. Vital signs stable. Wound is clean. There are no signs or symptoms of infection. ASSESSMENT: Status hemiarthroplasty. PLAN: The plan at this point is for her to continue with her weight-bearing status. We are going to likely switch her to Swing Bed status. [facility][id number] [facility]
--- NOTE | 2018-03-10 08:30 | PN ---
DATE: 03/10/18 SUBJECTIVE: Ms. Rick is doing well. She is up to a chair and pain is well controlled. OBJECTIVE: Afebrile. Vital signs stable. Wound is clean. There are no signs or symptoms of infection. ASSESSMENT: Status post hemiarthroplasty. PLAN: The plan at this point is for her to continue on weight-bearing. #[id number] [facility]
[2018-03-10] MEDS: CELECOXIB 100 MG CAP PO SCH ×2 (08:33→17:25)
[2018-03-10] MEDS: MAGNESIUM OXIDE 400 MG TAB PO SCH (08:33)
[2018-03-10] MEDS: VALSARTAN 80 MG TAB PO SCH (08:34)
[2018-03-10] MEDS: PHENAZOPYRIDINE HCL 200 MG TAB PO SCH ×3 (08:35→21:24)
[2018-03-10] MEDS: prednisoLONE ACETATE 1% OPHTH SOL 5 ML BTTL OPHTH SCH (08:38)
[2018-03-10] MEDS: TROSPIUM CHLORIDE 60 MG PO SCH (10:00)
--- NOTE | 2018-03-10 13:23 | PN ---
SUPERVISING PHYSICIAN: Yonathan Mckeon MD DATE: 03/10/18 SUBJECTIVE: The patient is lying in bed. She is in no acute distress. She denies any chest pain, nausea, vomiting, diarrhea or constipation. She has no significant pain and is looking forward to being discharged from the Acute Care setting to Swing Bed for continued physical therapy for strengthening and conditioning. OBJECTIVE: VITAL SIGNS: Afebrile. Heart rate 75. Blood pressure 133/73. Respiratory rate 16. O2 saturation 95% on room air. RESPIRATORY: Essentially clear to auscultation bilaterally. CARDIAC: Regular rate and rhythm. GASTROINTESTINAL: Abdomen is soft, nondistended, nontender. Bowel sounds are positive. EXTREMITIES: Bilateral pedal pulses are palpable at +2. The dressing to her left lateral hip is dry and intact. NEUROLOGIC: Awake, alert and oriented times three. LABORATORY: There are no labs or films to report at this time. ASSESSMENT: 1. Acute impacted left subcapital femoral neck fracture status post same level fall, postoperative day #3 for a left hemiarthroplasty performed by Dr. Conner Ansari, orthopedic surgeon. 2. Urinary tract infection preoperatively prior to Bhakta placement with continuation of antibiotics and urine cultures pending. 3. Seasonal allergies. 4. Hypertension. 5. Gastroesophageal reflux disease. PLAN: We will continue present supportive care. She will continue on Rocephin until cultures are available. The sensitivities should be available this afternoon or in the morning. She will continue with physical therapy for strengthening and conditioning. As soon as possible, we are awaiting approval from her insurance for the patient to be discharged from the Acute Care setting to Swing Bed admission. Hopefully, she can be discharged from the Acute Care setting in the next day or so. Orthopedic issues will be per Dr. Conner Ansari. We also need to make sure that home health services are established before the patient is actually discharged from the hospital. I am not sure which service they would like, but we will clarify that with the family. We will continue to monitor the patient closely and follow as needed. Dr. Mckeon is the collaborating physician and available for consultation. #[id number] [facility]
[2018-03-10] MEDS: IV SET AND CAP CHANGE INJ INJ SCH (17:27)
[2018-03-10] MEDS ORDERED: SODIUM CHL 0.9% 50ML MIN-BAG+ 50 ML IVPB ONE (19:48)
[2018-03-10] MEDS ORDERED: cefTRIAXone SODIUM 1 GM VIAL ONE (19:49)
[2018-03-10] MEDS ORDERED: MAGNESIUM HYDROXIDE 30 ML UD PO PRN (20:56)
[2018-03-10] MEDS: DOCUSATE CALCIUM 240 MG CAP PO SCH (21:22)
[2018-03-10] MEDS: cefTRIAXone SODIUM 1 GM in SODIUM CHL 0.9% 50ML MIN-BAG+ 50 ML IVPB SCH (21:24)
[2018-03-11] MEDS: HYDROcodone 5MG/APAP 325MG 1 EA TAB PO PRN ×4 (00:34→23:50)
[2018-03-11] MEDS: ENOXAPARIN SODIUM 30 MG/0.3 ML SYG SUBCU SCH ×2 (01:38→16:07)
[2018-03-11] MEDS: OMEPRAZOLE CAP 20 MG CAP PO SCH (06:32)
[2018-03-11] MEDS: prednisoLONE ACETATE 1% OPHTH SOL 5 ML BTTL OPHTH SCH (08:00)
[2018-03-11] MEDS: MAGNESIUM OXIDE 400 MG TAB PO SCH (08:27)
[2018-03-11] MEDS: CELECOXIB 100 MG CAP PO SCH ×2 (08:28→16:08)
[2018-03-11] MEDS: TROSPIUM CHLORIDE 60 MG PO SCH (08:28)
[2018-03-11] MEDS: VALSARTAN 80 MG TAB PO SCH (08:29)
[2018-03-11] MEDS: PHENAZOPYRIDINE HCL 200 MG TAB PO SCH ×3 (08:29→20:45)
--- NOTE | 2018-03-11 15:28 | PN ---
SUPERVISING PHYSICIAN: Yonathan Mckeon MD DATE: 03/11/18 SUBJECTIVE: The patient is lying in bed. She is getting prepared to do her physical therapy. She has no complaints of nausea, vomiting, diarrhea, chest pain, shortness of breath. Her physical therapist reports that she has been doing very well with her therapy. OBJECTIVE: VITAL SIGNS: Afebrile. Heart rate 74. Blood pressure 150/70. Respiratory rate 16. O2 saturation 95% on room air. RESPIRATORY: Essentially clear to auscultation bilaterally. CARDIAC: Regular rate and rhythm. GASTROINTESTINAL: Abdomen is soft, nondistended, nontender. Bowel sounds are positive. EXTREMITIES: Bilateral pedal pulses are palpable at +2. The dressing to her left hip is dry and intact. NEUROLOGIC: Awake, alert and oriented times three. LABORATORY: There are no labs and films to report at this time. The urine culture shows mixed urogenital angelic, less than 100,000 CFU per mL. ASSESSMENT: 1. Acute impacted left subcapital femoral neck fracture status post same level fall, postoperative day #4 for a left hemiarthroplasty performed by Dr. Conner Ansari, orthopedic surgeon. 2. Urinary tract infection preoperatively prior to Bhakta catheter placement, presently on Rocephin and urine culture shows mixed angelic. 3. Seasonal allergies. 4. Hypertension. 5. Gastroesophageal reflux disease. PLAN: We will continue present supportive care. At this point, we are awaiting approval from [facility] to place the patient in Swing Bed. Hopefully that will be approved in the next day or two. Orthopedic issues will be per Dr. Conner Ansari. Encouraged good pulmonary hygiene. Strengthening and conditioning will be per physical therapy. We will continue to monitor the patient closely and follow as needed. Dr. Mckeon is the collaborating physician and available for consultation. #[id number] [facility]
[2018-03-11] MEDS ORDERED: SODIUM CHL 0.9% 50ML MIN-BAG+ 50 ML IVPB ONE (19:24)
[2018-03-11] MEDS ORDERED: cefTRIAXone SODIUM 1 GM VIAL ONE (19:25)
[2018-03-11] MEDS: cefTRIAXone SODIUM 1 GM in SODIUM CHL 0.9% 50ML MIN-BAG+ 50 ML IVPB SCH ×2 (20:45→21:06)
[2018-03-11] MEDS: DOCUSATE CALCIUM 240 MG CAP PO SCH (20:45)
[2018-03-11] MEDS: CEFDINIR 300 MG CAP PO SCH (22:14)
[2018-03-12] MEDS: ENOXAPARIN SODIUM 30 MG/0.3 ML SYG SUBCU SCH ×2 (01:41→13:51)
[2018-03-12] MEDS: OMEPRAZOLE CAP 20 MG CAP PO SCH (06:10)
[2018-03-12] MEDS: CELECOXIB 100 MG CAP PO SCH ×2 (07:38→16:39)
[2018-03-12] MEDS: HYDROcodone 5MG/APAP 325MG 1 EA TAB PO PRN ×2 (07:38→13:52)
[2018-03-12] MEDS: TROSPIUM CHLORIDE 60 MG PO SCH (09:25)
[2018-03-12] MEDS: CEFDINIR 300 MG CAP PO SCH (09:26)
[2018-03-12] MEDS: VALSARTAN 80 MG TAB PO SCH (09:26)
[2018-03-12] MEDS: PHENAZOPYRIDINE HCL 200 MG TAB PO SCH ×2 (09:26→14:38)
[2018-03-12] MEDS: MAGNESIUM OXIDE 400 MG TAB PO SCH (09:26)
[2018-03-12] MEDS: prednisoLONE ACETATE 1% OPHTH SOL 5 ML BTTL OPHTH SCH (09:27)
[2018-03-12 16:07] VITALS: BP 149/70; TEMP 97.2; O2SAT 95
--- NOTE | 2018-03-13 09:18 | DS ---
SUPERVISING PHYSICIAN: Yonathan Mckeon MD ADMISSION DIAGNOSIS: 1. Subcapital femoral neck fracture. DISCHARGE DIAGNOSIS: 1. Acute impacted left subcapital femoral neck fracture status post same level fall, postoperative day #5 for a left hemiarthroplasty performed by Dr. Conner Ansari, orthopedic surgeon, with the patient requiring Swing Bed admission for ongoing physical therapy and rehabilitation efforts. 2. Urinary tract infection preoperatively prior to Bhakta catheter placement, treated with Rocephin with urine culture showing mixed angelic with the patient being asymptomatic. 3. Seasonal allergies. 4. Hypertension. 5. Gastroesophageal reflux disease. REASON FOR HOSPITALIZATION: Ms. Rick is an 87-year-old female patient who was initially admitted on 03/07/18 for surgical repair of a left hip fracture. She has been seen by her primary care physician, Dr. Duarte, for hip pain after she had gone to the Emergency Room on 02/22/18 with complaint of left hip pain and leg pain. 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 Initially, workup in the Emergency Department included x-rays of her hip that initially showed no acute fractures. This was then followed up with a lower extremity CT that showed no significant abnormalities identified. The patient was discharged home to have close clinical followup with Dr. Duarte. She was seen in followup on 02/25/18 and at that time treated with pain management. Three days post followup, the patient was continuing to have a significant amount of pain in her hip despite palliative measure treatments with heat and Tramadol, the patient was getting no relief. Dr. Duarte reviewed the CT and x- rays that were performed in the Emergency Department with radiologist, Dr. Strong, who recommended an MRI of the hip. MRI of the hip was completed on 01/17 and it was noted that she had acute impacted subcapital femoral neck fracture. Dr. Duarte consulted with Dr. Ansari who recommended the patient be admitted on the director of supply chain of 03/07/18 for a left hemiarthroplasty to repair the broken hip. The patient was admitted on 03/07/18 and had procedure completed which included a hemiarthroplasty of the left hip. The patient had no complications intraoperatively and was followed postoperatively. She did well through her rehabilitation efforts on Acute Care, but continued to need additional rehabilitation and physical therapy given that she does live by herself and is advanced in age. Initial discussion was with the patient in regards to possibly going to a rehab hospital, but the patient has denied any chances of admission as she wants to continue with rehab in the hospital through Swing Bed program. The patient is now discharged from Acute Care and admitted to Swing Bed. LABORATORY: Admission CBC showed a white count of 6,200, hemoglobin 12.9, hematocrit 37.1, platelet count 243,000, differential without a left shift. Postoperative hemoglobin and hematocrit showed hemoglobin 10.1 and hematocrit 29.4. Chemistries on admission showed just a mildly low sodium of 131, potassium 3.7, BUN 18, creatinine 0.82, calcium 9.8. Urinalysis on admission showed a small leukocyte esterase with microscopic showing 5 to 10 WBCs, no epithelials, no RBCs, 1+ bacteria after catheterization. MICROBIOLOGY: Urine culture was completed showing she had a greater than 100, 000 CFU per mL mixed urogenital angelic. RADIOLOGY: Postoperatively, she had a pelvis and hip x-ray that showed per radiologic interpretation left hip arthroscopy in customary position, near- anatomic alignment with no abnormal radiodense objects in the soft tissue or joint spaces status post left total hip arthroplasty. Preoperative workup included as noted above x-rays, CT of the hip and MRI. Please see those above findings. PROCEDURE: Left hemiarthroplasty performed by Dr. Conner Ansari. HOSPITAL COURSE: Ms. Rick was admitted on 03/07/18 for a repair of left hip fracture. She had a left hemiarthroplasty performed by Dr. Conner Ansari with no intraoperative complications. She was followed in the postoperative setting and did well with physical therapy, but given her advanced age and the fact that she lives alone, she continues to need ongoing physical therapy. She was treated for a questionable urinary tract infection to completion with the patient being asymptomatic at time of discharge and having completed a course of Rocephin along with culture results showing just urogenital angelic. The patient has progressed well enough to continue with Swing Bed at this point and is going to be admitted to Swing Bed for ongoing physical therapy and rehabilitation. PLAN: The patient is going to be discharged from Acute Care and admitted to Swing Bed program for ongoing physical therapy and rehabilitation efforts. #[id number] [facility]
== END 2018-03-12 16:13 | disposition swing bed (61) | DRG 470 ==
LOC: AMB 06:54 → MS 14:00
PROVIDERS: ADMIT Orthopaedic Surgery; ATTEND Nurse Practitioner Family
PROC: 0SRS0J9 Replacement of Left Hip Joint, Femoral Surface with Synthetic Substitute, Cemented, Open Approach (ICD-10-PCS; principal; 2018-03-07 10:16)
DX: S72.012A Unspecified intracapsular fracture of left femur, initial encounter for closed fracture (principal); N39.0 Urinary tract infection, site not specified; E87.1 Hypo-osmolality and hyponatremia; I10 Essential (primary) hypertension; K44.9 Diaphragmatic hernia without obstruction or gangrene; K21.9 Gastro-esophageal reflux disease without esophagitis; N32.81 Overactive bladder; E78.5 Hyperlipidemia, unspecified; J30.9 Allergic rhinitis, unspecified; W18.09XA Striking against other object with subsequent fall, initial encounter; Y93.89 Activity, other specified; Y92.000 Kitchen of unspecified non-institutional (private) residence as the place of occurrence of the external cause; Z79.82 Long term (current) use of aspirin; Z79.891 Long term (current) use of opiate analgesic; Z79.899 Other long term (current) drug therapy

== ENCOUNTER 2018-03-12 16:27 | Inpatient (IN) | payer OTHER ==
[2018-03-12] MEDS ORDERED: SODIUM PHOS/BIPHOS ENEMA ADULT 133 ML BTTL PR PRN (18:38)
[2018-03-13] MEDS: DOCUSATE SODIUM 100 MG CAP PO SCH (08:41)
[2018-03-13] MEDS: RIVAROXABAN 10 MG TAB PO SCH (08:41)
--- NOTE | 2018-03-13 09:28 | HP ---
SUPERVISING PHYSICIAN: Yonathan Mckeon MD REASON FOR SWING BED ADMISSION: Status post left hemiarthroplasty for continued physical therapy and rehabilitation efforts. HISTORY OF PRESENT ILLNESS: Ms. Rick is an 87-year-old female patient who was initially admitted on 03/07/18 for surgical repair of a left hip fracture. She has been seen by her primary care physician, Dr. Duarte, for hip pain after she had gone to the Emergency Room on 02/22/18 with complaint of left hip pain and leg pain. 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 Initially, workup in the Emergency Department included x-rays of her hip that initially showed no acute fractures. This was then followed up with a lower extremity CT that showed no significant abnormalities identified. The patient was discharged home to have close clinical followup with Dr. Duarte. She was seen in followup on 02/25/18 and at that time treated with pain management. Three days post followup, the patient was continuing to have a significant amount of pain in her hip despite palliative measure treatments with heat and Tramadol, the patient was getting no relief. Dr. Duarte reviewed the CT and x- rays that were performed in the Emergency Department with radiologist, Dr. Strong, who recommended an MRI of the hip. MRI of the hip was completed on 01/17 and it was noted that she had acute impacted subcapital femoral neck fracture. Dr. Duarte consulted with Dr. Ansari who recommended the patient be admitted on the deli/bakery associate of 03/07/18 for a left hemiarthroplasty to repair the broken hip. The patient was admitted on 03/07/18 and had procedure completed which included a hemiarthroplasty of the left hip. The patient had no complications intraoperatively and was followed postoperatively. She did well through her rehabilitation efforts on Acute Care, but continued to need additional rehabilitation and physical therapy given that she does live by herself and is advanced in age. Initial discussion was with the patient in regards to possibly going to a rehab hospital, but the patient has denied any chances of admission as she wants to continue with rehab in the hospital through Swing Bed program. The patient is now discharged from Acute Care and admitted to Swing Bed. PAST MEDICAL HISTORY: 1. History of gastritis and hiatal hernia with gastroesophageal reflux disease. 2. History of hypertension. 3. History of hyperlipidemia. 4. Seasonal allergies. PAST SURGICAL HISTORY: 1. Cholecystectomy. 2. Bladder suspension. 3. Hysterectomy. 4. Back surgery, laminectomy. 5. Cataract with corneal implant. CURRENT MEDICATIONS: 1. Valsartan 160 mg daily. 2. Trospium chloride extended release 60 mg daily. 3. Tramadol 50 mg daily. 4. Prednisone drops, Omnipred 1% both eyes daily. 5. Xarelto as per protocol. FAMILY HISTORY: Significant for colon cancer in her father. Mother from pancreatic cancer. No mention of any significant heart disease or diabetes. SOCIAL HISTORY: The patient is retired. She is and currently lives alone in [place]. She has a history of previous cigarette smoking but stopped well over 25 years ago. No illicit drug or alcohol use. REVIEW OF SYSTEMS: CONSTITUTIONAL: Denies any fevers, chills, weight loss. HEENT: Denies earache, headache, sore throat, nasal congestion. CHEST: Denies coughing, wheezing, exertional dyspnea. HEART: Denies chest pain, edema, palpitations, syncopal episodes. GASTROINTESTINAL: Denies nausea, vomiting, diarrhea, constipation or abdomen pain. GENITOURINARY: History of chronic bladder urgency with a recent urinary tract infection completed treatment with no current symptoms. EXTREMITIES: As noted in the history of present illness. NEUROLOGICAL: Denies syncopal episodes, seizure activity, ataxia or other neurological deficits. PHYSICAL EXAMINATION: VITAL SIGNS: Temperature 97.2. Pulse 75. Blood pressure 149/70. Respirations 16. Saturation 95% on room air. Weight 66.4 kg. GENERAL: The patient is resting comfortably in the bedside chair. She appears to be in no acute distress. She has had no complaints and she is alert. HEENT: Temperatures clear bilaterally. Oropharynx is pink and moist without any lesions. NECK: Supple, nontender with full range of motion. No jugular venous distention. CHEST: Clear to auscultation bilaterally without rhonchi, rales, or wheezes. HEART: Regular rate and rhythm without appreciable murmurs, rubs, or gallops. ABDOMEN: Soft, nontender, positive bowel sounds. EXTREMITIES: No cyanosis, clubbing, or edema. Left hip has a dressing in place that is clean and dry. There is no erythema, no signs of infection. Distally, pulses were strong, capillary refill brisk. NEUROLOGIC: She is alert and oriented x3. Cranial nerves II-XII are grossly intact. LABORATORY: Laboratory pending as repeat urinary tract infection. RADIOLOGY: No additional radiographic studies at time of admission to Swing Bed. ASSESSMENT: 1. Acute impacted left subcapital femoral neck fracture status post same level fall, postoperative day #5 for a left hemiarthroplasty performed by Dr. Conner Ansari, orthopedic surgeon, with the patient requiring Swing Bed admission for ongoing physical therapy and rehabilitation efforts. 2. Urinary tract infection preoperatively prior to Bhakta catheter placement, treated with Rocephin with urine culture showing mixed angelic with the patient being asymptomatic. 3. Seasonal allergies. 4. Hypertension. 5. Gastroesophageal reflux disease. PLAN: The patient was discharged from Acute Care to be admitted to Swing Bed for ongoing physical therapy and rehabilitation efforts. We will defer further orthopedic management and physical therapy to Dr. Ansari and physical therapy department. We will plan to repeat a urinalysis in the morning to further evaluate for continuation of treatment for previous urinary tract infection. She will be on DVT prophylaxis for an additional 30 days with Xarelto 10 mg daily. We will resume her home medications as appropriate. She will be on a regular diet as tolerated. We will anticipate her length of stay to be at least 3 to 10 days. Until she has met her goals with physical therapy and clinically stable enough to be discharged for continuation of outpatient management, we will continue to monitor and treat appropriately. #[id number] [facility] [place]
--- NOTE | 2018-03-13 11:38 | PN ---
DATE: 03/13/18 SUBJECTIVE: Ms. Rick is doing extremely well. She is progressing with physical therapy. OBJECTIVE: Afebrile. Vital signs stable. Wound is clean. There are no signs or symptoms of infection. ASSESSMENT: Status post hemiarthroplasty. PLAN: The plan at this point is for her to continue with therapy. She will probably need a week or so on Swing Bed. At that time providing she has met all goals, she will be discharged. #[id number] [facility]
--- NOTE | 2018-03-13 12:00 | PCM.CORE ---
Physician DVT/VTE - Prophylaxis Currently: Patient already on anticoagulation therapy - xarelto - Nurse DVT Assessment & Total Each Risk Factor Represents 5 Points: Elective Arthtroplasty Each Risk Factor Represents 3 Points: Age over 75 years Each Risk Factor is 1 Point: Varicose Veins/Edema Legs DVT Assessment Score: 9 - 5 or more Very High Risk Treatments: Early Ambulation *, Sequential Compression Device
[2018-03-13] MEDS ORDERED: VALSARTAN 80 MG TAB ONE (12:12)
[2018-03-13] MEDS: TROSPIUM CHLORIDE 60 MG PO SCH (12:16)
[2018-03-13] MEDS ORDERED: VALSARTAN 160 MG PO SCH (12:30)
[2018-03-13] MEDS ORDERED: PREDNISOLONE ACETATE 1% OP SCH (13:00)
[2018-03-13] MEDS: prednisoLONE ACETATE 1% OPHTH SOL 5 ML BTTL OPHTH SCH (15:07)
[2018-03-13] MEDS: HYDROcodone 5MG/APAP 325MG 1 EA TAB PO PRN (20:18)
[2018-03-14] MEDS: TROSPIUM CHLORIDE 60 MG PO SCH (08:47)
[2018-03-14] MEDS: RIVAROXABAN 10 MG TAB PO SCH (08:47)
[2018-03-14] MEDS: VALSARTAN 80 MG TAB PO SCH (08:47)
[2018-03-14] MEDS: DOCUSATE SODIUM 100 MG CAP PO SCH (08:48)
[2018-03-14] MEDS: prednisoLONE ACETATE 1% OPHTH SOL 5 ML BTTL OPHTH SCH (13:00)
[2018-03-14] MEDS: HYDROcodone 5MG/APAP 325MG 1 EA TAB PO PRN (13:10)
[2018-03-14] MEDS: MAGNESIUM HYDROXIDE 30 ML UD PO PRN (23:01)
[2018-03-15] MEDS: VALSARTAN 80 MG TAB PO SCH (09:27)
[2018-03-15] MEDS: RIVAROXABAN 10 MG TAB PO SCH (09:27)
[2018-03-15] MEDS: TROSPIUM CHLORIDE 60 MG PO SCH (09:27)
[2018-03-15] MEDS: DOCUSATE SODIUM 100 MG CAP PO SCH (09:28)
[2018-03-15] MEDS: prednisoLONE ACETATE 1% OPHTH SOL 5 ML BTTL OPHTH SCH (14:16)
[2018-03-15] MEDS: HYDROcodone 5MG/APAP 325MG 1 EA TAB PO PRN (22:11)
[2018-03-16] MEDS: RIVAROXABAN 10 MG TAB PO SCH (08:54)
[2018-03-16] MEDS: TROSPIUM CHLORIDE 60 MG PO SCH (08:54)
[2018-03-16] MEDS: VALSARTAN 80 MG TAB PO SCH (08:54)
[2018-03-16] MEDS: DOCUSATE SODIUM 100 MG CAP PO SCH (08:55)
[2018-03-16] MEDS: SULFA/TRIMETH 800/160 (DS) TAB 1 EA TAB PO SCH ×2 (11:15→21:43)
[2018-03-16] MEDS: HYDROcodone 5MG/APAP 325MG 1 EA TAB PO PRN ×2 (13:59→17:48)
[2018-03-16] MEDS: prednisoLONE ACETATE 1% OPHTH SOL 5 ML BTTL OPHTH SCH (16:17)
[2018-03-17] MEDS: HYDROcodone 5MG/APAP 325MG 1 EA TAB PO PRN (02:52)
[2018-03-17] MEDS: DOCUSATE SODIUM 100 MG CAP PO SCH (08:50)
[2018-03-17] MEDS: VALSARTAN 80 MG TAB PO SCH (08:50)
[2018-03-17] MEDS: RIVAROXABAN 10 MG TAB PO SCH (08:50)
[2018-03-17] MEDS: TROSPIUM CHLORIDE 60 MG PO SCH ×2 (08:51→20:39)
[2018-03-17] MEDS: SULFA/TRIMETH 800/160 (DS) TAB 1 EA TAB PO SCH ×2 (08:51→22:27)
[2018-03-17] MEDS: ACETAMINOPHEN 500 MG TAB PO PRN (11:33)
--- NOTE | 2018-03-17 13:12 | PN ---
SUPERVISING PHYSICIAN: Richmond Valencia MD DATE: 03/17/18 SUBJECTIVE: Ms. Rick is participating in physical therapy quite well. She states last night she did not sleep as well because she was up and down having to go to the restroom. For that reason, she is a little bit sore, but otherwise doing quite well. OBJECTIVE: VITAL SIGNS: Blood pressure 99/64. Heart rate 85. Respiratory rate 16. Temperature 98.2. Oxygen saturation 94%. GENERAL: Ms. Rick is an 87-year-old female in no active distress. NEUROLOGIC: Alert and oriented. LUNGS: Clear to auscultation bilaterally. CARDIOVASCULAR: Regular rate and rhythm. Normal S1, S2. ABDOMEN: Soft. Positive bowel sounds. GENITOURINARY: Deferred. EXTREMITIES: Lower extremities with pulses 2+. Capillary refill is less than 2 seconds. Left hip wound is dry and intact with no sign of infection. LABORATORY: Urinalysis yesterday is consistent with urinary tract infection, but the culture is still pending. ASSESSMENT: 1. Status post left hemiarthroplasty, postoperative day 10. 2. Urinary tract infection with urinary frequency. 3. Seasonal allergies. 4. Hypertension. 5. Gastroesophageal reflux disease. PLAN: We will continue the Bactrim p.o. Additionally, she takes Trospium for her overactive bladder. I have asked them to give this a little bit later in the day so maybe it will be a little more effective while she is sleeping. Continue all other orders as previous. Plan for possible discharge tomorrow or Saturday. Physical therapy said she is progressing well regarding that aspect. #[id number] [facility]
[2018-03-17] MEDS: prednisoLONE ACETATE 1% OPHTH SOL 5 ML BTTL OPHTH SCH (13:48)
[2018-03-18] MEDS: RIVAROXABAN 10 MG TAB PO SCH (08:34)
[2018-03-18] MEDS: VALSARTAN 80 MG TAB PO SCH (08:34)
[2018-03-18] MEDS: ACETAMINOPHEN 500 MG TAB PO PRN (08:34)
[2018-03-18] MEDS: DOCUSATE SODIUM 100 MG CAP PO SCH (08:34)
[2018-03-18] MEDS: SULFA/TRIMETH 800/160 (DS) TAB 1 EA TAB PO SCH ×2 (09:46→21:32)
[2018-03-18] MEDS: OMEPRAZOLE CAP 20 MG CAP PO SCH (10:02)
[2018-03-18] MEDS: prednisoLONE ACETATE 1% OPHTH SOL 5 ML BTTL OPHTH SCH (12:13)
[2018-03-18] MEDS: PHENAZOPYRIDINE HCL 200 MG TAB PO SCH ×2 (15:53→21:28)
[2018-03-18] MEDS: MAGNESIUM HYDROXIDE 30 ML UD PO PRN (21:28)
[2018-03-18] MEDS: TROSPIUM CHLORIDE 60 MG PO SCH (21:32)
[2018-03-19] MEDS: OMEPRAZOLE CAP 20 MG CAP PO SCH (06:24)
[2018-03-19] MEDS: DOCUSATE SODIUM 100 MG CAP PO SCH (09:19)
[2018-03-19] MEDS: SULFA/TRIMETH 800/160 (DS) TAB 1 EA TAB PO SCH (09:19)
[2018-03-19] MEDS: RIVAROXABAN 10 MG TAB PO SCH (09:19)
[2018-03-19] MEDS: VALSARTAN 80 MG TAB PO SCH (09:19)
[2018-03-19] MEDS: PHENAZOPYRIDINE HCL 200 MG TAB PO SCH (09:20)
[2018-03-19 10:34] VITALS: BP 101/57; TEMP 98.2; O2SAT 94
--- NOTE | 2018-03-19 11:07 | DS ---
SUPERVISING PHYSICIAN: Collins Brooks MD DISCHARGE DIAGNOSIS: 1. Status post left hemiarthroplasty, postoperative day #12. 2. Urinary tract infection with urinary frequency. 3. Seasonal allergies. 4. Hypertension. 5. Gastroesophageal reflux disease. HISTORY OF PRESENT ILLNESS: This is an 87-year-old female patient who was seeing her primary care physician, Dr. Duarte. She had gone to the Emergency Room on 02/22/18 with complaint of left hip pain and leg pain. 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 Initially, workup in the Emergency Department included x-rays that showed a normal left hip. It was followed up with a lower extremity CT that showed no significant abnormalities. The patient was discharged home to have close clinical followup with Dr. Duarte. She was seen in followup on 02/25/18 and at that time treated with pain management. Three days later, she was continuing to have significant pain in her left hip despite palliative treatment. Dr. Duarte reviewed the CT and x-rays that were performed in the Emergency Department. He also discussed with radiologist, Dr. Strong, who recommended an MRI of the hip. MRI of the hip was completed on 03/06/18 and it was noted that she had acute impacted subcapital femoral neck fracture. Dr. Duarte consulted with Dr. Ansari who recommended the patient be admitted on the compliance engineer products of 03/07/18 for a left hemiarthroplasty to repair the broken hip. The patient was admitted on 03/07/18 and had procedure completed which included a hemiarthroplasty of the left hip. The patient had no complications intraoperatively and was seen on the Floor postoperatively. Her only issues during her postoperative stay were her urinary frequency and urgency. She was also found to have a mild urinary tract infection. She completed her postoperative phase with no problems and did well with her physical therapy. Due to her living circumstances as well as her advanced age, she was discharged from the Acute Care and re-admitted to Swing Bed status for strengthening and conditioning of the left hip. She was also on DVT prophylaxis with Xarelto. She was also given Bactrim for her urinary tract infection. Yesterday, she continued to have urgency and some discomfort with urination, so Dr. Lombardo was called and it was recommended she be placed on Pyridium. She was continued on her Trospium as well as the Pyridium. She met all her guidelines for her strengthening and conditioning and will bedside home today in stable condition. DISCHARGE PLAN: The patient will be discharged home in stable condition. She will be followed by [facility] in the outpatient setting. She has an appointment with Dr. Ansari for followup on 04/03/18. We have also discharged her on pain medications of Protem. I have also continued for 22 additional days of Xarelto as well as continued her home medications as well as Pyridium. She is to resume her previous diet. Her activities is as per physical therapy. If the patient has any problems or complications, she can followup with Dr. Ansari or return to the hospital. She can also followup with Dr. Duarte as needed. DISCHARGE MEDICATIONS: 1. Valsartan. 2. Trospium. 3. Tramadol. 4. Prednisolone ophthalmic. 5. Hydrocodone. 6. Colace. 7. Pyridium. 8. Xarelto. 9. Bactrim . #[id number] [facility]
== END 2018-03-19 11:24 | disposition home health service (06) | DRG 560 ==
LOC: MS 16:27
PROVIDERS: ADMIT Nurse Practitioner Family; ATTEND Nurse Practitioner Acute Care
PROC: F07Z9ZZ Gait Training/Functional Ambulation Treatment (ICD-10-PCS; principal; 2018-03-12)
DX: Z47.1 Aftercare following joint replacement surgery (principal); N39.0 Urinary tract infection, site not specified; Z96.641 Presence of right artificial hip joint; R39.11 Hesitancy of micturition; K21.9 Gastro-esophageal reflux disease without esophagitis; I10 Essential (primary) hypertension; E78.5 Hyperlipidemia, unspecified; Z94.7 Corneal transplant status

== ENCOUNTER → 2018-04-08 | Outpatient (CLI) | payer OTHER | LOC: GRHH 10:55 | PROVIDERS: ATTEND Family Medicine | DX: I10 Essential (primary) hypertension (principal) ==

== ENCOUNTER → 2018-04-29 | Outpatient (CLI) | payer OTHER | LOC: GRHH 10:44 | PROVIDERS: ATTEND Family Medicine | DX: L29.9 Pruritus, unspecified (principal) ==

== ENCOUNTER → 2018-05-13 | Outpatient (CLI) | payer OTHER | LOC: GMAH 10:10 | PROVIDERS: ATTEND Family Medicine | DX: I10 Essential (primary) hypertension (principal) ==

== ENCOUNTER → 2018-10-07 | Outpatient (CLI) | payer OTHER ==
--- NOTE | 2018-10-08 17:06 | MAM ---
EXAM DESCRIPTION: 3D Screening BILATERAL : Digital Mammography. CLINICAL HISTORY: 88 years Female SCREEN . No complaints. No personal or family history of breast cancer.. Lifetime risk of developing breast cancer (Tyrer-Cuzick model)(%): Not calculated due to age greater than 85 years. COMPARISON: Bilateral screening digital breast tomosynthesis 09/24/2017. TECHNIQUE: Bilateral CC and MLO projection full-field images, digital tomosynthesis mammographic technique. Bilateral digital 2-D full-field MLO images. CAD not available for tomosynthesis or 2-D images. FINDINGS: The breast parenchymal density pattern is: Scattered areas of fibroglandular density. No skin thickening or nipple retraction. Bilateral vascular calcifications. Right axillary calcifications. Secretory calcifications right breast. No new focal, stellate mass or density, focal asymmetry , and no suspicious microcalcifications bilaterally. Stable mammograms compared to prior study. IMPRESSION: Benign exam. BIRAD CATEGORY: 2 BENIGN FINDINGS. RECOMMENDATIONS: FOLLOW UP: Routine digital bilateral mammographic screening, one year interval from October 2018. Written communication explaining the IMPRESSION and follow-up, will be mailed to the patient and referring health care provider. According to the [employer], yearly mammograms are recommended starting at age 40 and continuing as long as a woman is in good health. Any breast change noted on a breast self-exam should be reported promptly to the patient's healthcare provider. Breast MRI is recommended for women with an approximately 20-25% or greater lifetime risk of breast cancer, including women with a strong family history of breast or ovarian cancer and women who have been treated for Hodgkin's disease. A negative mammographic report should not delay tissue diagnosis in patients with significant clinical history or physical findings. Extremely dense breast tissue limits the sensitivity of digital mammography. Electronically signed by: Derrell Strong MD 10/08/2018 5:04 PM [employer]
== END ==
LOC: MAMMO 09:21
PROVIDERS: ATTEND Obstetrics & Gynecology
DX: Z12.31 Encounter for screening mammogram for malignant neoplasm of breast (principal)

== ENCOUNTER → 2018-10-08 | Outpatient (CLI) | payer OTHER | LOC: GMAH 10:53 | PROVIDERS: ATTEND Family Medicine | DX: I10 Essential (primary) hypertension (principal) ==